=== PATIENT | female | born 1990 | race Asian ===

== ENCOUNTER 2017-05-28 22:04 | Emergency (ER) | payer BC, OTHER ==
[~2017-05-28] VITALS: Ht 157.5 cm; Wt 54.0 kg
[2017-05-28 22:06] VITALS: TEMP 36.7; Ht 157.5 cm; Wt 54.0 kg
[2017-05-28] MEDS ORDERED: IBUPROFEN 600 MG TAB PO STA (22:24)
[2017-05-28] MEDS ORDERED: DIPHTHERIA/TETANUS/PERTUSSIS 0.5 ML SYR/VIAL IM. ONE (22:30)
[2017-05-28] MEDS ORDERED: HYDROCODONE/ACETAMOPHEN 5/325MG TAB PO ONE (22:30)
[2017-05-28] MEDS ORDERED: AMOXICILLIN/CLAVULANATE TAB 875 MG TAB PO ONE (22:30)
--- NOTE | 2017-05-28 22:58 | DIAGNOSTIC IMAGING REPORT ---
RIGHT HAND MIN 3 VIEWS ROUTINE CLINICAL HISTORY: dog bite right hand/thumb Right COMPARISON STUDY: None. FINDINGS: Soft tissue swelling and small lacerations at the base of the thumb. No fracture or dislocation within the right hand. No radiopaque foreign bodies. IMPRESSION: No fractures within the right hand. Soft tissue swelling and small lacerations at the base of the thumb. Electronically signed by: Antonio Marion M.D. 05/28/2017 10:57 PM Dictated Date/Time: 05/28/2017 10:55 PM
[2017-05-28] MEDS ORDERED: AMOX875T PO (23:13)
[2017-05-28] MEDS ORDERED: NORCO 5/325MG HOME PACK PO ONE (23:15)
[2017-05-28 23:39] VITALS: BP 128/70; PULSE 74; O2SAT 98
--- NOTE | 2017-05-29 05:22 | EMERGENCY ROOM VISIT NOTE ---
History First contact with patient: 22:10 Chief Complaint: BITE Stated Complaint: DOG BITE, R THUMB History of Present Illness The patient is a 26 year old female who presents to the Emergency Room with complaints of a dog bite to the right thumb that occurred about 2 hours ago. The animal is known to the patient's , and is owned by a friend. The animal is reportedly up-to-date on its rabies shots, however the family did not confirm this. The patient primarily has pain at the base of the right thumb. She is unsure of her owns tetanus status. She rates her discomfort a 7/10. Review of Systems More than 10 systems were reviewed and otherwise negative with the exception of history of present illness. Past Medical/Surgical History Medical Problems: (1) Laceration Social History Smoking Status: Never Smoker Alcohol Use: none Marital Status: single Occupation Status: [employer] student Current/Historical Medications Scheduled Amoxicillin & Pot Clavulanate (Augmentin 875-125 mg), 1 TAB PO BID Physical Exam Vital Signs Date Time Temp Pulse Resp B/P (MAP) Pulse Ox O2 Delivery O2 Flow Rate FiO2 05/28/17 23:39 74 20 128/70 98 05/28/17 22:06 36.7 107 18 130/91 97 Room Air Pain Rating (0-10): 0 Physical Exam VITALS: Vitals are noted on the nurse's note and reviewed by myself. Vital signs stable. GENERAL: Well-developed, well-nourished, female, who is in no acute distress and resting comfortably. Patient is cooperative with the examination. HEART: Regular rate and rhythm without murmurs gallops or rubs. LUNGS: Clear to auscultation bilaterally without wheezes, rales or rhonchi. No retractions or accessory muscle use. MUSCULOSKELETAL: Puncture wounds are appreciated to the thenar aspect of the right thumb as well as lateral to the right thumb. These are consistent with a dog bite injury. The patient is full sensation and range of motion of the thumb. There is no significant laceration. Minimal bleeding is noted. NEURO: Patient was alert and oriented to person place and time. CN II through XII grossly intact. Medical Decision & Procedures ER Provider Diagnostic Interpretation: RIGHT HAND MIN 3 VIEWS ROUTINE CLINICAL HISTORY: dog bite right hand/thumb Right COMPARISON STUDY: None. FINDINGS: Soft tissue swelling and small lacerations at the base of the thumb. No fracture or dislocation within the right hand. No radiopaque foreign bodies. IMPRESSION: No fractures within the right hand. Soft tissue swelling and small lacerations at the base of the thumb. Medications Administered Medications (Trade) Dose Ordered Sig/Alanna Route Start Time Stop Time Status Last Admin Dose Admin Amoxicillin/ Clavulanate Potassium (Augmentin Tab) 875 mg NOW ONCE PO 05/28/17 22:30 05/28/17 22:31 DC 05/28/17 22:31 875 MG Ibuprofen (Motrin Tab) 600 mg NOW STAT PO 05/28/17 22:24 05/28/17 22:25 DC 05/28/17 22:31 600 MG Acetaminophen/ Hydrocodone Bitart ([place] 5/325 Tab) 1 tab NOW ONCE PO 05/28/17 22:30 05/28/17 22:31 DC 05/28/17 22:31 1 TAB Diphtheria/ Pertussis/Tetanus Vacc (Adacel Inj) 0.5 ml ONCE ONCE IM. 05/28/17 22:30 05/28/17 22:31 DC 05/28/17 22:33 0.5 ML Acetaminophen/ Hydrocodone Bitart ([place] 5/325mg Home Pack) 1 homepack UD ONCE PO 05/28/17 23:15 05/28/17 23:16 DC 05/28/17 23:31 1 HOMEPACK ED Course Physical exam and history were performed. Nursing notes, EMR, and Medication List were personally reviewed. Patient appears to have suffered a dog bite injury to the right thumb. X-ray was obtained and does not show evidence of bony injury or foreign body. The patient was started on Augmentin. She was given a dose at home pack of oxycodone. She will be given a continuation course of the Augmentin. The patient needs to definitively determine the status of the animal's rabies immunization. If she has any concerns. She was instructed to immediately come back for initiation of the rabies series. We did update the patient's tetanus herself, as she was unsure of her tetanus. The wounds were cleansed and dressed and the patient was discharged with instructions as below. The chart was completed utilizing [employer] Voice Recognition Software. Grammatical errors, random word insertions, pronoun errors, and incomplete sentences are an occasional consequence of this system due to software limitations, ambient noise, and hardware issues. Any formal questions or concerns about the content, text, or information contained within the body of this dictation should be directly addressed to the provider for clarification. . Medical Decision Differential diagnosis includes, but is not limited to: Sprain, strain, fracture , laceration, abrasion, foreign body, infection, rabies exposure, and others Impression Primary Impression: Dog bite Departure Information Dispostion Home / Self-Care Condition GOOD Prescriptions Amoxicillin & Pot Clavulanate (Augmentin 875-125 mg) 1 Tab Tab 1 TAB PO BID for 10 Days, #20 TAB Prov: Patricio Queen PA-C 05/28/17 Referrals [facility] (PCP) Forms HOME CARE DOCUMENTATION FORM, IMPORTANT VISIT INFORMATION Patient Instructions My [facility] Additional Instructions You were seen and evaluated today on an emergency basis only. This is not a substitute for, or an effort to provide, complete comprehensive medical care. It is not possible to recognize and treat all injuries or illnesses in a single emergency department visit. For this reason it is recommended that you followup with your primary care physician this week for ongoing care and evaluation. For baseline pain relief you may alternate ibuprofen and acetaminophen every 4 hours for pain control. Take 600 mg ibuprofen (Advil) and then 4 hours later take 1000 mg acetaminophen (Tylenol). Do not take more than 3000 mg acetaminophen in a single day. [place] (hydrocodone/acetaminophen) 5/325 mg every 6 hours as needed for worsening breakthrough pain. Do not drink or drive on [place]. This medication will likely make you tired. Do not take [place] and Tylenol at the same time as both contain acetaminophen. [place] may cause constipation. You may wish to take an [id number] stool softener like Colace if this occurs. Amoxicillin Clavulanate (Augmentin) 875mg: Take one pill twice daily for 10 days to prevent infection. All antibiotics can cause diarrhea. If this occurs and you feel worse or it does not resolve in 1-2 days follow up with your doctor or return to the Emergency Department as this could be signs of serious underlying problems. Any medication can cause an allergic reaction, stop the pills immediately and return to the ER for rash, hives, breathing difficulties, or swelling. We strongly recommend that you identify the rabies immunization status of the animal. We recommend that you either get confirmation from a receipt or certificate that the animal is immunized. You may also be able to contact the [facility] where the animal is seen to get this information. If you cannot adequately identify the rabies status of the animal please return to the ER for initiation of the rabies immunization series. You are welcome to return to the emergency department anytime with new, worsening, or concerning symptoms.
== END 2017-05-28 23:40 | disposition home or self-care (01) ==
LOC: C.EDB 22:04 → C.EDC 23:40
DX: S61.051A Open bite of right thumb without damage to nail, initial encounter (principal); W54.0XXA Bitten by dog, initial encounter; Z23 Encounter for immunization